=== PATIENT | female | born 1965 | race Caucasian/White ===

== ENCOUNTER 2020-12-20 16:01 | Emergency (ER) | payer OTHER, SELFPAY ==
--- NOTE | ~2020-12-20 | XR_ITS ---
EXAMINATION: XR knee RT 3V DATE: 12/20/2020 19:41 INDICATION: Anterior right knee pain post fall TECHNIQUE: Anteroposterior, sunrise and crosstable lateral views of the right knee were obtained COMPARISON: None. FINDINGS: Alignment is normal. No fracture. There is at least mild tricompartmental osteoarthritis at the righ t knee with mild joint space narrowing in the medial compartment, moderate size marginal osteophytes at the patellofemoral compartment and small marginal osteophytes in both medial and lateral compartme nts. Severity of joint space narrowing can however be underestimated on nonweightbearing imaging. Sma ll loose osteochondral bodies projects over the anterior recess of the medial compartment and the sup rapatellar pouch. Very small right knee joint effusion at the suprapatellar pouch without layering li pohemarthrosis. Subcutaneous varicosities at the bilateral side of the knee and distal thigh. Soft ti ssues are otherwise unremarkable. IMPRESSION: 1. No acute osseous abnormality. 2. At least mild tricompartmental osteoarthritis at the right knee with small right knee joint effusi on Reviewed, dictated and finalized at location A. IMPRESSION: 1. No acute osseous abnormality. 2. At least mild tricompartmental osteoarthritis at the right knee with small r ight knee joint effusion
[2020-12-20 16:04] VITALS: BP 116/57; PULSE 89; RESP 18; TEMP 36.2; O2SAT 97
--- NOTE | 2020-12-20 18:34 | ED.GENADULT ---
HPI - General Adult General Chief complaint: Fall Stated complaint: fall at work Time Seen by Provider: 12/20/20 17:35 Source: patient Mode of arrival: ambulatory Limitations: no limitations History of Present Illness HPI narrative: Patient presents for evaluation after experiencing all injury at work at [employer] earlier today. Pt states that she slipped on condensation of the floor in the cooler. She hit her head against a [employer] rack and landed on the floor. She did not hit her head against the floor. No LOC. She is not on anticoagulation. Denies vomiting since the episode. She now reports a throbbing headache in the left parietal region. Pain is currently 5/10 in severity. She reports bilateral knee pain, right greater than the left, which is worse with movement. She states she had surgery on left foot for calcaneal spur back in July of this year. She subsequently developed a stress fracture in the left foot. She has been using the [employer] boot for ambulation. She denies injuring her left foot during her fall today. Related Data Home Medications Medication Instructions Recorded Confirmed Coreg 12/20/20 Cymbalta 12/20/20 Lyrica 12/20/20 Vesicare 12/20/20 aspirin 12/20/20 lisinopril 12/20/20 Allergies Allergy/AdvReac Type Severity Reaction Status Date / Time ciprofloxacin [From Cipro] Allergy Redness of Verified 12/20/20 17:41 Skin Sulfa (Sulfonamide Allergy Anaphylaxis Verified 12/20/20 17:41 Antibiotics) tape Allergy Rash Uncoded 12/20/20 17:41 Review of Systems Review of Systems: Narrative: CONSTITUTIONAL: Denies fever, chills, or sweats. EYES: Denies visual changes, redness, or discharge. ENT: Denies rhinorrhea, congestion, sore throat, or otalgia. CARDIOVASCULAR: Denies chest pain, palpitations, or edema. RESPIRATORY: Denies cough or dyspnea. GASTROINTESTINAL: Denies abdominal pain, nausea, vomiting, or diarrhea. GENITOURINARY: Denies dysuria or hematuria. SKIN: Denies rash or itching. MUSCULOSKELETAL: Reports bilateral knee pain. Denies back pain or myalgia. NEUROLOGIC: Reports headache. Denies numbness, dizziness, or weakness. PSYCHIATRIC: Denies anxiety or depression. [facility] Past Medical History Medical History (Updated 12/20/20 @ 20:31 by Elmer Harrison, [employer], ) Calcaneal spur Hypertension Posterior calcaneal spur of left foot Family History Family History Father No problems noted. Social History Social History Smoking status: Never smoker Alcohol intake: never Substance use: never Additional occupation/education comments: Works at [employer] Gender identity (if verbalized by the patient): Female Sexual Orientation (if Verbalized by the Patient): Straight or Heterosexual Spiritual care concerns: No Exam Narrative: Exam Narrative: GENERAL: Well-appearing, well-nourished, and in no acute distress. HEAD: Normocephalic EYES: PERRLA and EOMI. ENT: Nares clear, no rhinorrhea or epistaxis. Mucous membranes moist. Oropharynx without tonsillar hypertrophy exudate or other lesions. Bilateral TMs pearly judge nonbulging NECK: Supple. No adenopathy or masses. No carotid bruits or JVD CHEST: Clear to auscultation. No respiratory distress. No wheezes rales or rhonchi HEART: Regular rate and rhythm. No murmur heard. Normal peripheral pulses. ABDOMEN: Soft, nontender, nondistended, normal active bowel sounds. EXTREMITIES: Tenderness noted over the anterior aspect of right patella. Normal range of motion. No edema. SKIN: Approximately 1 cm area of ecchymosis noted to anterior aspect of right knee. There is dirt noted to her jeans over the anterior aspect of bilateral lower legs. Approximately 3 cm superficial abrasion with erythema to left parietal region of her skull without evidence of skull depression. Skin warm,
--- NOTE | 2020-12-20 19:21 | PC.NURSE ---
Patient taken to xray.
[2020-12-20 20:20] VITALS: BP 146/89; PULSE 99; RESP 17; TEMP 36.8; O2SAT 99
== END 2020-12-20 21:00 | disposition home or self-care (01) ==
PROVIDERS: Emergency Provider Nurse Practitioner; PCP Family Medicine
DX: S00.03XA Contusion of scalp, initial encounter (principal); S80.01XA Contusion of right knee, initial encounter; I10 Essential (primary) hypertension; W01.198A Fall on same level from slipping, tripping and stumbling with subsequent striking against other object, initial encounter
CPT/HCPCS: 73562; 99283; A9270

== ENCOUNTER 2021-07-22 14:25 | Outpatient (RCR) | payer MEDICARE, SELFPAY ==
[2021-07-22 15:41] VITALS: BP 140/78; PULSE 77; RESP 18; TEMP 37.8; O2SAT 98
[2021-07-22] MEDS: FAMOTIDINE 20 MG TABLET PO (15:44)
[2021-07-22] MEDS: ACETAMINOPHEN 325 MG TABLET 650 MG PO (15:44)
[2021-07-22] MEDS: diphenhydrAMINE HCl CAP 25 MG CAPSULE PO (15:44)
[2021-07-22 16:47] VITALS: BP 112/77
== END 2021-07-22 17:00 ==
LOC: AMCINF 14:25
PROVIDERS: PCP Family Medicine; Visit Provider Internal Medicine Hematology & Oncology
DX: U07.1 COVID-19 (principal); I10 Essential (primary) hypertension
CPT/HCPCS: A9270; M0243; Q0244